=== PATIENT | female | born 1970 | race Caucasian/White ===

== ENCOUNTER 2017-01-24 21:20 | Emergency (ER) | payer OTHER ==
[2017-01-24 21:30] VITALS: TEMP 98.1
[2017-01-24] MEDS ORDERED: NS 1,000 ML IV ONE (22:05)
[2017-01-24 22:13] LABS: % IMMATURE GRANULYOCYTES 0.1 % (0.0-1.1); ABSOLUTE IMMATURE GRANULOCYTES 0.01 10^3/uL (0.00-0.10); ADD DIFF? NO; ADD MORPH? NO; ADD SCAN? NO; ATYPICAL LYMPHOCYTE FLAG 0 (0-99); FRAGMENT RBC FLAG 0 (0-99); HEMATOCRIT 38.5 % (38.0-47.0); HEMOGLOBIN 13.3 g/dL (12.6-16.3); LEFT SHIFT FLG 10 (0-99); LIPEMIA HEMOLYSIS FLAG 90 (0-99); MEAN CELL HEMOGLOBIN 29.6 pg (27.9-34.1); MEAN CELL HEMOGLOBIN CONCENTR. 34.5 g/dL (32.4-36.7); MEAN CELL VOLUME 85.7 fL (81.5-99.8); MEAN PLATELET VOLUME 9.5 fL (8.7-11.7); PLATELET CLUMPS FLAG 0 (0-99); PLATELET COUNT 156 10^3/uL (150-400); RED BLOOD CELL COUNT 4.49 10^6/uL (4.18-5.33); RED CELL DISTRIBUTION WIDTH 11.9 % (11.5-15.2)
--- NOTE | 2017-01-24 22:29 | EDPHY ---
H & P Stated Complaint: heavy vaginal bleeding; IUD recently removed Time Seen by Provider: 01/24/17 21:45 HPI/ROS: HPI The patient presents with vaginal bleeding which began tonight and is heavy, she has used 3 tampons and 3 pads over the last 4 hours. She had increased vaginal spotting on her IUD over the last 1 month and therefore had it removed 3 days ago. She had a Mirena IUD in place for the last 3-4 years which was placed for heavy menses. Tonight, she has cramping lower abdominal pain which feels like it. To her. It is [id number] in nature. She has not had any fevers. She is not taking NSAIDs or any blood thinners. She does describe vertigo which has been intermittent. REVIEW OF SYSTEMS Constitutional: No fever, no chills. Eyes: No discharge. Respiratory: No cough, no shortness of breath. Gastrointestinal: Lower abdominal cramping, no vomiting Genitourinary: No hematuria. Musculoskeletal: No back pain. Skin: No rashes. Neurological: No headache. PMHx: History of bipolar disorder and hypothyroidism. Soc Hx: works at a [employer] in [employer] PHYSICAL General Appearance: Alert, no distress Eyes: Pupils equal and round no pallor or injection ENT, Mouth: Mucous membranes moist Respiratory: There are no retractions, lungs are clear to auscultation Cardiovascular: Regular rate and rhythm Gastrointestinal: Abdomen is soft and non-tender, no masses, bowel sounds normal Pelvic exam demonstrates clots in her vaginal vault, bleeding from os, no evidence of trauma Neurological: A&O, moves all extremities Skin: Warm and dry, no rashes Musculoskeletal: Neck is supple non tender Extremities: symmetrical, full range of motion Psychiatric: Patient is oriented X 3, there is no agitation Source: Patient Exam Limitations: No limitations - Personal History LMP (Females 10-55): Now Current Tetanus/Diphtheria Vaccine: Yes - Medical/Surgical History Hx Asthma: No Hx Chronic Respiratory Disease: No Hx Diabetes: No Hx Cardiac Disease: No Hx Renal Disease: No Hx Cirrhosis: No Hx Alcoholism: No Hx HIV/AIDS: No Hx Splenectomy or Spleen Trauma: No Other PMH: PMHx: insomnia, bipolar II, hypothryoid. PSHx: R clavicle ORIF 2016 - Social History Smoking Status: Never smoked Constitutional: Initial Vital Signs Temperature (C) 36.7 C 01/24/17 21:25 Heart Rate 67 01/24/17 21:25 Respiratory Rate 15 01/24/17 21:25 Blood Pressure 132/70 H 01/24/17 21:25 O2 Sat (%) 99 01/24/17 21:25 O2 Delivery Mode Room Air Allergies/Adverse Reactions: No Known Allergies Allergy (Unverified 01/24/17 21:25) Home Medications: Medication Instructions Recorded Lamictal 01/24/17 Seroquel 01/24/17 Synthroid 01/24/17 Medical Decision Making - Diagnostics Imaging Results: Imaging Impressions Pelvic/Renal Ultrasound 01/24/17 22:34 Impression: 1. 2 small intramural fibroids in the uterus. 2. Normal lining at 4 mm. 3. Possible dermoid in the right ovary. Study is limited due to transabdominal imaging only. Findings and recommendations discussed with Nida Andrews MD at 2346 hour , 01/24/2017. Final report concurs with initial preliminary interpretation. Imaging: Discussed imaging studies w/ home health provider Radiologist Differential Diagnosis: This is a 46-year-old female with recent Mirena IUD removal 3 days ago who presents with heavy vaginal bleeding. On exam, she has normal vital signs. Pelvic exam does reveal active bleeding with clots which is mild to moderate in severity. Differential diagnosis includes progesterone withdrawal bleeding, uterine trauma, fibroid uterus, ovarian cyst. I discussed the case with the windshield repair technician python developer for the [facility], Rosa Carr. She recommends ultrasound which patient is agreeable to, however would prefer transabdominal. If bleeding is heavy, she may require treatment. Otherwise the bleeding can be monitored. In the emergency room, CBC was performed and was normal. The patient was monitored for about 2 hours and her bleeding improved. Ultrasound was performed and demonstrated normal endometrial stripe, 2 fibroids and a right ovarian cyst which could be dermoid. I have discussed these findings with her. I plan to discharge her from the emergency room with follow up with her windshield repair technician over the next few days. Given that the bleeding has improved, I do not feel she needs to be started on hormone treatment. - Data Points Laboratory Results: Laboratory Results 01/24/17 21:55 01/24/17 21:55 WBC 6.94 10^3/uL 10^3/uL (3.80-9.50) RBC 4.49 10^6/uL 10^6/uL (4.18-5.33) Hgb 13.3 g/dL g/dL (12.6-16.3) Hct 38.5 % % (38.0-47.0) MCV 85.7 fL fL (81.5-99.8) MCH 29.6 pg pg (27.9-34.1) MCHC 34.5 g/dL g/dL (32.4-36.7) RDW 11.9 % % (11.5-15.2) Plt Count 156 10^3/uL 10^3/uL (150-400) MPV 9.5 fL fL (8.7-11.7) Neut % (Auto) 55.7 % % (39.3-74.2) Lymph % (Auto) 37.0 % % (15.0-45.0) Falls % (Auto) 5.5 % % (4.5-13.0) Eos % (Auto) 1.6 % % (0.6-7.6) Baso % (Auto) 0.1 % L % (0.3-1.7) Nucleat RBC Rel Count 0.0 % % (0.0-0.2) Absolute Neuts (auto) 3.86 10^3/uL 10^3/uL (1.70-6.50) Absolute Lymphs (auto) 2.57 10^3/uL 10^3/uL (1.00-3.00) Absolute Monos (auto) 0.38 10^3/uL 10^3/uL (0.30-0.80) Absolute Eos (auto) 0.11 10^3/uL 10^3/uL (0.03-0.40) Absolute Basos (auto) 0.01 10^3/uL L 10^3/uL (0.02-0.10) Absolute Nucleated RBC 0.00 10^3/uL 10^3/uL (0-0.01) Immature Gran % 0.1 % % (0.0-1.1) Immature Gran # 0.01 10^3/uL 10^3/uL (0.00-0.10) Medications Given: Discontinued Medications Sodium Chloride (Ns) 1,000 mls @ 0 mls/hr IV ONCE ONE PRN Reason: Wide Open Stop: 01/24/17 22:06 Last Admin: 01/24/17 22:05 Dose: 1,000 mls Departure - Departure Disposition: Home, Routine, Self-Care Clinical Impression: Vaginal bleeding Uterine fibroid Qualifiers: Uterine leiomyoma location: unspecified location Qualified Code(s): D25.9 - Leiomyoma of uterus, unspecified Condition: Good Instructions: Dysfunctional Uterine Bleeding (ED) Additional Instructions: Please return to the emergency room if your bleeding becomes heavy or you experience any lightheadedness or trouble breathing. Your ultrasound today demonstrated 2 fibroids as well as a cyst on your right ovary. This cyst on the right ovary will probably require a repeat transvaginal ultrasound, please follow-up with your midwife and birth center owner about this. Referrals: Rosa Carr CNM [Non Staff and Non MD] - As per Instructions
[2017-01-25 00:02] VITALS: BP 117/54; PULSE 56; RESP 20; O2SAT 98
== END 2017-01-25 00:03 | disposition home or self-care (01) ==
DX: D25.9 Leiomyoma of uterus, unspecified (principal)

== ENCOUNTER → 2017-07-10 | Outpatient (CLI) | payer OTHER | LOC: FIMAGING 15:01 | PROVIDERS: ATTEND Family Medicine | DX: D25.9 Leiomyoma of uterus, unspecified (principal); N88.8 Other specified noninflammatory disorders of cervix uteri; N83.201 Unspecified ovarian cyst, right side ==

== ENCOUNTER → 2017-08-27 | Outpatient (CLI) | payer OTHER | LOC: FIMAGING 10:54 | PROVIDERS: ATTEND Orthopaedic Surgery | DX: S42.021D Displaced fracture of shaft of right clavicle, subsequent encounter for fracture with routine healing (principal) ==